=== PATIENT | female | born 1995 | race Caucasian/White ===

== ENCOUNTER → 2019-02-26 16:19 | Outpatient (CLI) | payer OTHER, MEDICAID, SELFPAY ==
[2019-02-26 17:58] LABS: Hematocrit 37.4 % (36-46); Hemoglobin 12.1 g/dL (12.0-16.0); Mean Corpuscular HGB Conc 32.5 % (30-36); Mean Corpuscular Hemoglobin 25.1 PG (26-34); Mean Corpuscular Volume 77.2 fL (80-100); Platelet Count 295 X10^3/uL (150-400); Red Blood Cell Count 4.84 X10^6/uL (4.0-5.2); Red Cell Distribution Width 15.8 % (11.6-14.8); White Blood Cell Count 7.4 X10^3/uL (4.5-11.0)
[2019-02-26 18:27] LABS: Alanine Aminotransferase 18 IU/L (9-52); Albumin 4.6 g/dL (3.5-5.0); Albumin Globulin Ratio 1.4 (1.0-2.8); Alkaline Phosphatase 68 U/L (38-126); Aspartate Aminotransferase 23 IU/L (14-36); BUN Creatinine Ratio 21.4 (6-22); Bilirubin Total 0.2 mg/dL (0.2-1.3); Blood Urea Nitrogen 15 mg/dL (7-17); Carbon Dioxide 25 mmol/L (22-32); Chloride 104 mmol/L (98-107); Estimated Glomerular Filt Rate > 60.0 mL/min (>60); Globulin 3.2 g/dL (1.7-4.1); Glucose 118 mg/dL (70-100); HEMOLYSIS < 15 (0-50); Potassium 4.2 mmol/L (3.4-5.1); Sodium 140 mmol/L (137-145); Total Protein 7.8 g/dL (6.3-8.2)
[2019-02-26 18:54] LABS: TSH w/ Reflex to FT4 1.37 uIU/mL (0.47-4.68)
[2019-02-26 18:59] LABS: Hepatitis B Surface Antigen NEGATIVE s/c (NEGATIVE)
[2019-02-26 19:16] LABS: HIV 1 & 2 Ab/Ag 4th Gen Combo NEGATIVE (NEGATIVE); Hep C Virus Ab w/Reflex Quant NEGATIVE s/c (NEGATIVE)
[2019-03-21 13:27] LABS: RPR Screen Nonreactive
[2019-03-21 13:28] LABS: HSV 1 IgM Screen Negative
[2019-03-21 13:29] LABS: HSV 2 IgM Screen Negative
== END ==
PROVIDERS: PCP Nurse Practitioner Family; Visit Provider Nurse Practitioner Family
DX: F41.9 Anxiety disorder, unspecified (principal); Z20.2 Contact with and (suspected) exposure to infections with a predominantly sexual mode of transmission
CPT/HCPCS: 36415; 80053; 84443; 85027; 86592; 86695; 86696; 86803; 87340; 87389

== ENCOUNTER 2019-03-27 13:15 | Emergency (ER) | payer OTHER, MEDICAID, SELFPAY ==
[2019-03-27 13:17] VITALS: BP 133/93; PULSE 79; RESP 15; TEMP 35.9; O2SAT 100; BMI 25.6
[2019-03-27] MEDS: ONDANSETRON 4 MG ODT SL (13:23)
[2019-03-27 13:37] LABS: RBC Urine None Seen (0-5/HPF)
[2019-03-27 13:46] LABS: Amorphous Sediment Urine 1+; Bacteria Urine Few (2-10); Squamous Epithelial Cell Urine 5-10 /HPF (0-5/HPF); WBC Urine 1-5/HPF (0-5/HPF)
[2019-03-27 13:47] LABS: Culture Indicated Urine Cult Not Indicated
--- NOTE | 2019-03-27 15:29 | ED_ITS ---
HPI - Nausea/Vomiting/Diarrhea General Chief complaint: Nausea/Vomiting/Diarrhea Stated complaint: vomiting blood Time Seen by Provider: 03/27/19 14:17 Source: patient Mode of arrival: Ambulatory Limitations: no limitations History of Present Illness HPI Narrative: Patient comes emergency department complaining of vomiting blood after drinking heavily last night. Patient states that she normally does not have blood in her vomit after drinking, and that she does not drink alcohol heavily very often. She states that she has not felt lightheaded or dizzy. No blood in her stools or melena. No abdominal pain. Patient is still somewhat nauseated. She is not known to be . No dysuria. She is not on any anticoagulants. No bleeding disorders. No other complaints at this time. Related Data Home Medications Medication Instructions Recorded Confirmed levonorgestrel [Plan B One-Step] 1.5 mg PO .ONCE 03/27/19 03/27/19 Previous Rx's Medication Instructions Recorded sertraline 100 mg tablet 100 mg PO DAILY #90 tab 01/30/19 sertraline 50 mg tablet 50 mg PO DAILY #90 tab 02/25/19 omeprazole 20 mg PO DAILY #10 cap 03/27/19 ondansetron 4 mg PO Q6H PRN #10 tab 03/27/19 Allergies Allergy/AdvReac Type Severity Reaction Status Date / Time No Known Drug Allergies Allergy Verified 03/27/19 13:17 Review of Systems Constitutional Constitutional: Denies chills, Denies fatigue, Denies fever(s), Denies frequent falls, Denies lethargy and Denies weakness Eyes Eyes: Denies change in vision, Denies eye discharge, Denies irritation and Denies loss of vision ENT Ears, Nose, Mouth, and Throat: Denies change in voice, Denies dizziness, Denies neck pain, Denies sore throat and Denies throat swelling Cardiovascular Cardiovascular: Denies chest pain, Denies irregular heart rhythm, Denies lightheadedness, Denies palpitations, Denies dyspnea, Denies dyspnea on exertion and Denies orthopnea Respiratory Respiratory: Denies cough, Denies dyspnea, Denies dyspnea on exertion and Denies wheezing Gastrointestinal Gastrointestinal: Denies abdominal pain, Denies change in bowel habits, Denies diarrhea, Reports nausea, Reports vomiting and Reports hematemesis Genitourinary Genitourinary: Denies hematuria, Denies flank pain, Denies urinary incontinence and Denies urinary urgency Musculoskeletal Musculoskeletal: Denies back pain, Denies muscle weakness, Denies neck pain, Denies numbness and Denies tingling Integumentary/Breasts Skin/Breast: Denies pruritus, Denies erythema, Denies rash and Denies wounds Neurologic Neurologic: Denies behavioral changes, Denies confusion, Denies dizziness, Denies frequent falls, Denies loss of vision, Denies numbness, Denies tingling and Denies weakness Psychiatric Psychiatric: Denies anxiety, Denies behavioral changes, Denies confusion, Denies depression, Denies homicidal ideation and Denies suicidal ideation Endocrine Endocrine: Denies fatigue, Denies flushing and Denies palpitations Hematologic/Lymphatic Hematologic/Lymphatic: Denies easy bruising Allergic/Immunologic Allergic/Immunologic: Denies urticaria, Denies throat swelling and Denies wheezing [facility] Medical History Acne (Chronic) Anemia (Chronic) Anxiety (Chronic) Depression (Chronic) Eczema (Chronic) Heavy menstrual period (Chronic) Irregular menstrual cycle (Chronic) Painful menstrual periods (Chronic) WPW (Ouglt-Vsescplzl-Jpyja syndrome) (Chronic ~2017) Surgical History History of breast surgery (Resolved) History of cardiac radiofrequency ablation (Resolved) Family History (Updated 01/21/19 @ 21:47 by Xiomara Paniagua) Father Diabetes mellitus Hypertension Hyperlipidemia Mental health problem Mother Diabetes mellitus Mental health problem Social History Smoking Status: Never smoker second hand exposure: No alcohol intake: current (1-2x/ month) substance use type: marijuana (smoke, edibles, vape a few times a week) Family History Father Diabetes mellitus Hypertension Hyperlipidemia Mental health problem Mother Diabetes mellitus Mental health problem Social History Smoking Status: Never smoker second hand exposure: No alcohol intake: current (1-2x/ month) substance use type: marijuana (smoke, edibles, vape a few times a week) Exam Initial Vital Signs Initial Vital Signs: Vital Signs Temperature 96.7 F L 03/27/19 13:17 Pulse Rate 79 03/27/19 13:17 Respiratory Rate 15 03/27/19 13:17 Blood Pressure 133/93 H 03/27/19 13:17 Pulse Oximetry 100 03/27/19 13:17 Const General: cooperative and well developed Nutritional Appearance: well nourished Orientation: alert, awake, oriented x3 and not confused [facility] Head: normocephalic and atraumatic Ears: external ears normal Nose: external nose normal and No nasal discharge Face and sinus: face symmetric and No dry mucous membranes Mouth: oral mucosae normal and moist mucous membranes Teeth and gingiva: dentition normal Eyes General: appearance normal, both eyes and all related structures Eyelids: eyelids normal Conjunctivae: conjunctivae normal Sclera: sclerae normal Pupils: PERRL EOM: EOM intact bilaterally Neck Neck: normal visual inspection, trachea midline, No lymphadenopathy, No midline deformity and No JVD Lymphatic: No lymphedema Chest Chest: normal inspection of the chest Resp Effort & Inspection: normal respiratory effort, able to speak in complete s entences, no respiratory distress and no use of accessory muscles Auscultation: clear to auscultation bilaterally, no rales, no rhonchi and no wheezes Cardio Rate: regular rate Rhythm: regular rhythm Heart Sounds: no click, no gallops, no murmurs and no rubs Pulses: normal peripheral pulses GI Inspection: non-distended Palpation: soft, no hepatosplenomegaly, No guarding, No pulsatile mass and No tender Back/Spine/Pelvis Back: No CVA tenderness Cervical Spine: cervical ROM normal and No pain with cervical ROM Thoracic/Lumbar Spine: thoracic and lumbar spine normal to inspection Skin General: no rashes or lesions noted, No jaundice and No petechiae Neuro General: alert, oriented x3, gait normal and no focal motor deficits Speech: speech normal Extrem General: full ROM, no clubbing, cyanosis or edema, no pedal edema and no calf tenderness Psych Appearance: well kempt Mental Status: mental status grossly normal Attitude: cooperative Thought Content: normal and suicidality Judgment: judgment good Course Course Course Narrative: The patient was treated symptomatically with Zofran and Protonix in the emergency department. I did discuss with the patient that most likely, her bleeding is secondary to gastric irritation from the alcohol, as well as the force of vomiting. There is no evidence of an ongoing, upper GI hemorrhage at this time. Additionally, the patient does not have a history of ulcers or ongoing alcohol abuse, and does not have a bleeding disorder or anticoagulation. We have discussed home management of symptoms, as well as the usual indications for return in follow-up. Orders Ordered: ED Orders 03/27/19 13:26 Urine Microscopic Stat Discontinued Medications Al Hydrox/Mg Hydrox/Simethicone 20 ml/ Lidocaine HCl 15 ml 0 ml PO NOW ONE Stop: 03/27/19 15:29 Last Admin: 03/27/19 16:00 Dose: 35 ml Documented by: RANDY Ondansetron HCl (Zofran Odt) 4 mg SL NOW ONE Stop: 03/27/19 13:23 Last Admin: 03/27/19 13:23 Dose: 4 mg Documented by: MILADY Pantoprazole Sodium (Protonix) 40 mg PO NOW ONE Stop: 03/27/19 15:28 Last Admin: 03/27/19 15:59 Dose: 40 mg Documented by: RANDY Vital Signs Vital signs: Vital Signs - 8 hr 03/27/19 13:17 03/27/19 16:07 Temperature 96.7 F L Pulse Rate 79 76 Respiratory Rate 15 18 Blood Pressure 133/93 H Blood Pressure [Right Arm] 136/85 Pulse Oximetry 100 97 MDM - Nausea/Vomiting/Diarrhea Medical Records Attestation: I reviewed the patient's medical records. Lab Data Labs: Lab Results 03/27/19 Range/Units 13:26 Urine RBC None seen (0-5/HPF) Urine WBC 1-5/hpf (0-5/HPF) Ur Squamous Epith Cells 5-10 /hpf H (0-5/HPF) Amorphous Sediment 1+ Urine Bacteria Few (2-10) H (None) Ur Culture Indicated? Cult not indicated Point of Care Testing Test Results Negative Urine Dip Bedside Urine Glucose Negative Bedside Urine Bilirubin - Negative Bedside Urine Ketone ++ 40 Urine Specific [place] 1.015 Bedside Urine Occult Blood - Negative Bedside Urine pH 7.5 Bedside Urine Protein + 30 Bedside Urine Urobilinogen +/- 1mg Bedside Urine Nitrite - Negative Bedside Urine Leukocytes + 70 Esterase Discharge Plan Departure Patient Disposition: Home Clinical Impression: Vomiting Qualifiers: Vomiting type: unspecified Vomiting Intractability: non-intractable Nausea presence: with nausea Qualified Code(s): R11.2 - Nausea with vomiting, unspecified Gastritis Qualifiers: Gastritis type: alcoholic Chronicity: acute Gastritis bleeding: with bleeding Qualified Code(s): K29.21 - Alcoholic gastritis with bleeding Discharge Date/Time: 03/27/19 16:08 Instructions: DI for Vomiting -- Adult, DI for Alcoholic Gastritis Activity Restrictions/Additional Instructions: The vomiting with blood is most likely the result of inflammation of your stomach lining from the alcohol, combined with the force of vomiting. Given that you are not on any blood thinners, and do not have an underlying bleeding disorder or ulcers, this will most likely resolve on its own with the vomiting. Please take the nausea and antacid medication, as directed. Your prescriptions have been transmitted electronically to [facility] in [place]. Prescriptions: New ondansetron 4 mg tablet,disintegrating 4 mg PO Q6H PRN (Reason: nausea and vomiting) Qty: 10 RF: 0 omeprazole 20 mg capsule,delayed release(DR/EC) 20 mg PO DAILY Qty: 10 RF: 0 No Action sertraline 50 mg tablet 50 mg PO DAILY Qty: 90 RF: 0 sertraline 100 mg tablet 100 mg PO DAILY Qty: 90 RF: 2 levonorgestrel [Plan B One-Step] 1.5 mg Tablet 1.5 mg PO .ONCE RF: 0 Referrals: Lois Goyal ARNP [Primary Care Provider] -
[2019-03-27] MEDS: PANTOPRAZOLE 20 MG TABLET 40 MG PO (15:59)
[2019-03-27] MEDS: MAG HYDROX/ALUMINUM/SIMETH SUS 20 ML, LIDOCAINE VISCOUS 2% 15 ML PO (16:00)
[2019-03-27 16:07] VITALS: BP 136/85; PULSE 76; RESP 18; O2SAT 97
== END 2019-03-27 16:08 | disposition home or self-care (01) ==
PROVIDERS: Emergency Provider Emergency Medicine; PCP Nurse Practitioner Family
DX: R11.2 Nausea with vomiting, unspecified (principal); K29.21 Alcoholic gastritis with bleeding
CPT/HCPCS: 81003; 81015; 81025; 99282; 99283

== ENCOUNTER → 2019-07-17 09:49 | Outpatient (CLI) | payer OTHER, MEDICAID, SELFPAY ==
--- NOTE | 2019-07-17 09:50 | DI.US.S_ITS ---
LIMITED ULTRASOUND OF LEFT BREAST: 07/17/2019 CLINICAL: Nipple discharge, left breast, not bloody. Focal right breast pain. No prior exams were available for comparison. Real-time ultrasound of the left breast 6 o'clock, 9 o'clock, and retroareolar regions was performed on the area of interest. No discrete cystic or solid mass lesions identified. IMPRESSION: NEGATIVE There is no sonographic evidence of malignancy. There is no abnormality seen in the left breast to correspond with the discharge from the nipple in the sub-areolar depth, however, clinical followup is recommended. There are no abnormalities seen in the left breast to correspond with the pain at 6 and 9 o'clock, however, clinical followup is recommended. This exam was interpreted at Station ID: [id number]. Electronically Signed By: Blu Ferrer M.D. ddgoran/:07/22/2019 17:18:16 letter sent: Clinical Evaluation Ultrasound BI-RADS: 1 Negative
--- NOTE | 2019-07-17 09:50 | DI.US.S_ITS ---
LIMITED ULTRASOUND OF RIGHT BREAST: 07/17/2019 CLINICAL: Nipple discharge, right breast, not bloody. No prior exams were available for comparison. Real-time ultrasound of the right breast retroareolar was performed on the area of interest. No discrete cystic or solid mass lesion identified in the retroareolar region. IMPRESSION: NEGATIVE There is no sonographic evidence of malignancy. There is no abnormality seen in the right breast to correspond with the discharge from the nipple in the sub-areolar depth, however, clinical followup is recommended. This exam was interpreted at Station ID: [id number]. Electronically Signed By: Blu Ferrer M.D. ddp/:07/22/2019 17:19:18 letter sent: Clinical Evaluation Ultrasound BI-RADS: 1 Negative
== END ==
PROVIDERS: PCP Nurse Practitioner Family; Visit Provider Nurse Practitioner Family
DX: N64.52 Nipple discharge (principal); N63.20 Unspecified lump in the left breast, unspecified quadrant; N64.4 Mastodynia
CPT/HCPCS: 76642

== ENCOUNTER → 2020-02-27 16:06 | Outpatient (CLI) | payer OTHER, MEDICAID, SELFPAY ==
--- NOTE | 2020-02-27 16:09 | DI.RAD.S_ITS ---
PROCEDURE: XR LUMBAR SPINE 2-3V INDICATIONS: lower back pain TECHNIQUE: 5 views of the lumbar spine were acquired. COMPARISON: None. FINDINGS: Bones: 5 [id number] vertebrae are present. Trace levocurvature centered at L3 level. No vertebral body compression fractures. No suspicious bony lesions. Soft tissues: Overlying bowel gas pattern is normal. No suspicious soft tissue calcifications. IMPRESSION: Trace levocurvature; otherwise normal L-spine. Dictated by: Rhett WANG Interpreted: Santiago Prabhakar MD on 02/27/2020 at 16:35 Approved by: Santiago Prabhakar M.D. on 03/01/2020 at 13:06
== END ==
PROVIDERS: PCP Nurse Practitioner Family; Referring Provider Nurse Practitioner Family; Visit Provider Nurse Practitioner Family
DX: M54.5 Low back pain (principal)
CPT/HCPCS: 72100

== ENCOUNTER → 2020-06-07 10:18 | Outpatient (CLI) | payer OTHER, MEDICAID, SELFPAY ==
[2020-06-07 12:22] LABS: COVID19 -Nasal RAPID Negative (Negative)
== END ==
PROVIDERS: PCP Nurse Practitioner Family; Visit Provider Physician Assistant
DX: Z11.59 Encounter for screening for other viral diseases (principal)
CPT/HCPCS: 87635

== ENCOUNTER → 2021-07-28 14:44 | Outpatient (CLI) | payer OTHER, MEDICAID, SELFPAY ==
--- NOTE | 2021-07-28 | DI.US.S_ITS ---
PROCEDURE: US ABDOMEN LIMITED INDICATIONS: PROGRESSIVE RIGHT LOWER QUADRANT PAIN TECHNIQUE: Real-time focused scanning was performed of the abdomen with attention to the appendix, with image documentation. COMPARISON: None. FINDINGS: Appendix visualization: Not visualized Appendix measurements: Unable to assess Associated findings: Echogenic fat: Absent Appendiceal compressibility: Unable to assess Appendicoliths: Unable to assess Nearby free fluid: Absent Lymphadenopathy: Absent Tenderness on exam: Absent IMPRESSION: Appendix not visualized and cannot be evaluated. This study does not exclude appendicitis. Dictated by: Gretta Grayson MD, PhD on 07/28/2021 at 16:44 Approved by: Gretta Grayson MD, PhD on 07/28/2021 at 16:45
== END ==
PROVIDERS: PCP Nurse Practitioner Family; Referring Provider Naturopath; Visit Provider Naturopath
DX: R10.31 Right lower quadrant pain (principal)
CPT/HCPCS: 76705

== ENCOUNTER → 2022-04-04 14:45 | Outpatient (CLI) | payer OTHER, SELFPAY ==
[2022-04-04 16:14] LABS: Hepatitis B Surface Antigen NEGATIVE s/c (NEGATIVE)
[2022-04-04 16:25] LABS: Hep C Virus Ab w/Reflex Quant NEGATIVE s/c (NEGATIVE)
[2022-04-04 16:26] LABS: HIV 1 & 2 Ab/Ag 4th Gen Combo NEGATIVE (NEGATIVE)
[2022-04-06 00:36] LABS: HSV 2 IGG AB < 0.91 index (0.00-0.90)
[2022-04-06 02:07] LABS: Hepatitis B Core AB w/Reflex Negative (Negative)
[2022-04-06 07:09] LABS: RPR Screen Non Reactive (Non Reactive)
== END ==
PROVIDERS: PCP Registered Nurse Diabetes Educator; Referring Provider Registered Nurse Diabetes Educator; Visit Provider Registered Nurse Diabetes Educator
DX: Z72.51 High risk heterosexual behavior (principal)
CPT/HCPCS: 36415; 86592; 86694; 86695; 86696; 86704; 86803; 87340; 87389

== ENCOUNTER → 2024-03-21 14:38 | Outpatient (CLI) | payer OTHER, SELFPAY ==
[2024-03-21 19:19] LABS: Urine N gonorrhoeae NOT DETECTED
[2024-03-21 19:32] LABS: Urine Chlamydia NOT DETECTED
== END ==
PROVIDERS: Visit Provider Obstetrics & Gynecology
DX: N89.8 Other specified noninflammatory disorders of vagina (principal)
CPT/HCPCS: 87491; 87591; 87798

== ENCOUNTER → 2024-05-16 18:50 | Outpatient (CLI) | payer OTHER, SELFPAY ==
--- NOTE | 2024-05-16 18:52 | DI.MRI.S_ITS ---
PROCEDURE: MR PELVIS WO/W CON INDICATIONS: Watery/bloody vaginal discharge, chronic TECHNIQUE: Coronal HASTE, sagittal breath-hold T2 FSE; axial T1 FSE with and without fat saturation through the pelvis. Optional long- and short-axis uterine nonbreath-hold T2 FSE through the uterus. Sagittal or axial dynamic VIBE during administration of contrast. Post-contrast axial or coronal VIBE/2-D FLASH with fat saturation from the iliac crests to the symphysis. Optional diffusion weighted imaging and ADC may be performed. COMPARISON: [facility], US, US PELVIC COMPLETE WITH TRANSVAGINAL, 08/16/2021, 8:47. FINDINGS: Image quality: Excellent. Uterus: Uterus is normal in size. Endometrium is normal in thickness. Junctional zone is normal in thickness at 12 mm or less. Adnexa: Both ovaries measure greater than 10 milliliter, and contain greater than 12 follicles. There is a benign right paraovarian cyst measuring 1.3 x 1.4 centimeter. Urinary system: Bladder wall is normal in thickness. Distal ureters are non distended. Urethra appears normal in morphology. Nodes and vessels: No pelvic or inguinal adenopathy by size criteria. Iliac vessels are normal in size. Bowel and peritoneum: No pathologic free pelvic fluid. Inferior colon and small bowel loops are normal in caliber. Soft tissues: No inguinal hernias. No findings of pelvic floor incompetence in the absence of provocation. Bones: Marrow demonstrates normal overall signal. IMPRESSION: Ovaries are enlarged with greater than 12 follicles, which can be seen in the clinical setting of PCOS. Otherwise, no acute abnormality. Dictated by: Sterling Schaffer M.D. on 05/19/2024 at 9:30 Approved by: Sterling Schaffer M.D. on 05/19/2024 at 9:42
== END ==
PROVIDERS: Referring Provider Obstetrics & Gynecology; Visit Provider Obstetrics & Gynecology
DX: N89.8 Other specified noninflammatory disorders of vagina (principal); N83.8 Other noninflammatory disorders of ovary, fallopian tube and broad ligament
CPT/HCPCS: 72197; A9579